=== PATIENT | male | born 1965 | race Caucasian/White ===

== ENCOUNTER 2017-01-18 14:12 | Emergency (ER) | payer MEDICARE ==
[~2017-01-18] VITALS: Ht 180.3 cm; Wt 76.0 kg
[~2017-01-18 14:12] MED LIST: ADVIL200 MG OR; ALLEGRA180 MG PO; AMITRIPTYLIN25 MG PO; AMOXICILLIN250 M1 PO; CARAFATE1 GM/10 M1 PO; COMBIVENT IN; COMBIVENT RESPIMAT IN; CYCLOBENZAPR10 MG PO; DRY E-NATUR400 UNIT PO; ELAVIL10 MG PO; FEOSOL65 MG PO; FERR SULFATE325 MG PO; FERROUS SULFAT325 MG PO; INFED50 MG/ML IJ; LORTAB 10 PO; LORTAB 1010 MG PO; NEXIUM20 M1 PO; NEXIUM40 M1 PO; OMEPRAZOLE20 MG PO; OXYCODONE HCL5 MG PO; PROAIR HFA IN; PROTONIX40 M2 PO; PROVENTIL IN; PROVENTIL INH17 GM IN; ROBAXIN-750750 MG PO; SPIRIVA HANDIHALER IN; VITAMIN D3400 UNI2 PO; XANAX0.5 MG PO; ZITHROMAX250 MG OR
[2017-01-18] MEDS ORDERED: PROAIR HFA IN (15:25)
[2017-01-18] MEDS ORDERED: VIAGRA100 MG PO (15:26)
[2017-01-18] MEDS ORDERED: PROTONIX40 M2 PO (15:26)
[2017-01-18 16:24] VITALS: BP 105/70
== END 2017-01-18 16:25 ==
LOC: ED 14:12
DX: K92.2 Gastrointestinal hemorrhage, unspecified (principal); D50.0 Iron deficiency anemia secondary to blood loss (chronic); F17.200 Nicotine dependence, unspecified, uncomplicated; R42 Dizziness and giddiness

== ENCOUNTER 2017-02-03 01:45 | Emergency (ER) | payer MEDICARE ==
[~2017-02-03] VITALS: Ht 180.3 cm; Wt 78.8 kg
[~2017-02-03 01:45] MED LIST changes: +VIAGRA100 MG PO
[2017-02-03] MEDS ORDERED: METOCLOPRAM5 MG PO (02:22)
[2017-02-03] MEDS ORDERED: LIDOCAINE VISC20 ML EX (02:36)
[2017-02-03] MEDS ORDERED: AMOXICILLIN500 MG PO (02:36)
[2017-02-03 03:15] VITALS: BP 129/90
== END 2017-02-03 03:15 | disposition home or self-care (01) ==
LOC: ED 01:45
DX: K04.7 Periapical abscess without sinus (principal); F17.210 Nicotine dependence, cigarettes, uncomplicated; G89.29 Other chronic pain; M54.9 Dorsalgia, unspecified

== ENCOUNTER 2017-07-23 16:51 | Emergency (ER) | payer MEDICARE ==
[~2017-07-23] VITALS: Ht 180.3 cm; Wt 60.0 kg
[~2017-07-23 16:51] MED LIST changes: +AMOXICILLIN500 MG PO; +LIDOCAINE VISC20 ML EX; +METOCLOPRAM5 MG PO
[2017-07-23 17:43] LABS: IMMATURE GRANULOCYTES 0.9 % (0.0-1.0); MEAN CELL VOLUME 60.5 fL CALC (80.0-100.0); MEAN CORPUSCULAR HGB 15.8 pG CALC (26.0-32.0); MEAN CORPUSCULAR HGB CONC 26.2 g/L CALC (32.0-36.0); NEUT# 14.01 thou/uL (1.82-7.42); RED BLOOD COUNT 3.92 mill/uL (4.70-6.10)
[2017-07-23 18:00] LABS: ALBUMIN 4.4 g/dL (3.2-5.0); ALKALINE PHOSPHATASE 51 u/l (38-126); AMYLASE < 30 u/l (30-110); BILIRUBIN, TOTAL 0.9 mg/dL (0.0-1.4); BUN 67 mg/dL (9-20); BUN/CREATININE RATIO 23 (12-20 (CALC)); CALCIUM 10.9 mg/dL (8.4-10.2); CHLORIDE 72 mmol/l (95-108); CREATININE 2.9 mg/dL (0.7-1.3); GFR 23 ML/MIN (>=60 (CALC)); GFR FOR AFR.AMER. 28 ML/MIN (>=60 (CALC)); GLUCOSE 118 mg/dL (75-110); LIPASE 39 u/l (23-300); POTASSIUM 2.8 mmol/l (3.5-5.1); SGOT/AST 19 u/l (17-59); SGPT/ALT 21 u/l (21-72); SODIUM 133 mmol/l (137-146); TOTAL PROTEIN 7.2 g/dL (6.3-8.2)
[2017-07-23 18:13] LABS: MYOGLOBIN 123 ng/mL (0 - 121)
[2017-07-23 18:20] LABS: ANION GAP 24 (6-22 (CALC)); CARBON DIOXIDE 40 mmol/l (22-30)
[2017-07-23 18:22] LABS: HEMATOCRIT 23.7 % (39.0-50.0); HEMOGLOBIN 6.2 g/dl (14.0-18.0)
[2017-07-23 20:51] LABS: URINE BILIRUBIN - DIPSTICK NEGATIVE (NEGATIVE); URINE BLOOD DIPSTICK TRACE-INTACT (NEGATIVE); URINE CLARITY CLEAR; URINE COLOR YELLOW; URINE GLUCOSE - DIPSTICK NEGATIVE (NEGATIVE); URINE KETONE NEGATIVE (NEGATIVE); URINE LEUK ESTERASE NEGATIVE (NEGATIVE); URINE NITRITE - DIPSTICK NEGATIVE (Negative); URINE PH 5.5 (4.5-8.0); URINE PROTEIN - DIPSTICK NEGATIVE (NEG-TRACE); URINE UROBILINOGEN - DIPSTICK 0.2 E.U./dL (0.2)
[2017-07-23 21:43] VITALS: BP 102/63
[2017-07-23 22:03] VITALS: BP 99/58
[2017-07-23 22:23] VITALS: BP 99/58
== END 2017-07-23 22:24 ==
LOC: ED 16:51
PROVIDERS: Emergency Medicine
PROC: 30233N1 Transfusion of Nonautologous Red Blood Cells into Peripheral Vein, Percutaneous Approach (ICD-10-PCS; principal; 2017-07-23)
DX: K92.2 Gastrointestinal hemorrhage, unspecified (principal); G89.29 Other chronic pain; M54.9 Dorsalgia, unspecified; F17.210 Nicotine dependence, cigarettes, uncomplicated; Z86.711 Personal history of pulmonary embolism; Z87.11 Personal history of peptic ulcer disease; R53.1 Weakness
CPT/HCPCS: P9016; S0164

== ENCOUNTER 2021-04-17 08:46 | Day surgery (SDC) | payer MEDICARE ==
[~2021-04-17] VITALS: Ht 182.9 cm; Wt 77.1 kg
[~2021-04-17 08:46] MED LIST changes: +STIOLTO RESPIMA1 AER IN; +XANAX1 MG PO
[2021-04-17] MEDS ORDERED: PERCOCET 5/325M1 TAB PO ×2 (11:14→11:15)
[2021-04-17 11:45] VITALS: BP 117/69
== END 2021-04-17 12:05 | disposition home or self-care (01) ==
LOC: ORM 08:46
PROVIDERS: ATTEND Surgery
PROC: 0YU64JZ Supplement Left Inguinal Region with Synthetic Substitute, Percutaneous Endoscopic Approach (ICD-10-PCS; principal; 2021-04-17)
DX: K40.91 Unilateral inguinal hernia, without obstruction or gangrene, recurrent (principal); F17.210 Nicotine dependence, cigarettes, uncomplicated
CPT/HCPCS: C1781; J0131; J2710

== ENCOUNTER 2022-10-12 08:10 | Day surgery (SDC) | payer MEDICARE ==
[~2022-10-12] VITALS: Ht 182.9 cm; Wt 70.8 kg
[~2022-10-12 08:10] MED LIST changes: +PERCOCET 5/325M1 TAB PO
[2022-10-12 12:13] VITALS: BP 104/67
== END 2022-10-12 11:30 | disposition home or self-care (01) ==
LOC: ENDO 08:10
PROVIDERS: ATTEND Internal Medicine Gastroenterology
PROC: 0DBH8ZX Excision of Cecum, Via Natural or Artificial Opening Endoscopic, Diagnostic (ICD-10-PCS; principal; 2022-10-12)
PROC: 0DBN8ZX Excision of Sigmoid Colon, Via Natural or Artificial Opening Endoscopic, Diagnostic (ICD-10-PCS; 2022-10-12)
PROC: 0DBP8ZX Excision of Rectum, Via Natural or Artificial Opening Endoscopic, Diagnostic (ICD-10-PCS; 2022-10-12)
DX: Z12.11 Encounter for screening for malignant neoplasm of colon (principal); D12.0 Benign neoplasm of cecum; D12.5 Benign neoplasm of sigmoid colon; K62.1 Rectal polyp; K40.90 Unilateral inguinal hernia, without obstruction or gangrene, not specified as recurrent; K57.30 Diverticulosis of large intestine without perforation or abscess without bleeding; K64.8 Other hemorrhoids

== ENCOUNTER 2022-12-22 08:34 | Day surgery (SDC) | payer MEDICARE ==
[~2022-12-22] VITALS: Ht 180.3 cm; Wt 70.0 kg
[~2022-12-22 08:34] MED LIST changes: +ANORO ELLIPTA 61 AER IN
[2022-12-22 15:14] VITALS: BP 110/71
== END 2022-12-22 14:58 | disposition home or self-care (01) ==
LOC: ORM 08:34
PROVIDERS: ATTEND Surgery
PROC: 0YQ50ZZ Repair Right Inguinal Region, Open Approach (ICD-10-PCS; principal; 2022-12-22)
PROC: 0WPG0JZ Removal of Synthetic Substitute from Peritoneal Cavity, Open Approach (ICD-10-PCS; 2022-12-22)
DX: K40.90 Unilateral inguinal hernia, without obstruction or gangrene, not specified as recurrent (principal); T85.628A Displacement of other specified internal prosthetic devices, implants and grafts, initial encounter; D17.6 Benign lipomatous neoplasm of spermatic cord; J44.9 Chronic obstructive pulmonary disease, unspecified; F17.210 Nicotine dependence, cigarettes, uncomplicated; Y83.2 Surgical operation with anastomosis, bypass or graft as the cause of abnormal reaction of the patient, or of later complication, without mention of misadventure at the time of the procedure
CPT/HCPCS: C9290; J0131; J0690

== ENCOUNTER 2023-05-04 11:49 | Emergency (ER) | payer MEDICARE ==
[~2023-05-04] VITALS: Ht 180.3 cm; Wt 68.0 kg
[2023-05-04 11:59] VITALS: BP 124/76
[2023-05-04 12:30] VITALS: BP 129/76
[2023-05-04 12:32] LABS: BASO% 0.1 % (0-3); HEMATOCRIT 50.9 % (39.0-50.0); HEMOGLOBIN 16.1 g/dl (14.0-18.0); IMMATURE GRANULOCYTES 0.2 % (0.0-5.0); LYMPH% 5.1 % (15-41); MEAN CELL VOLUME 94.4 fL CALC (80.0-100.0); MEAN CORPUSCULAR HGB 29.9 pG CALC (26.0-32.0); MEAN CORPUSCULAR HGB CONC 31.6 g/dL CAL (32.0-36.0); MONO% 5.4 % (2-13); NEUT# 13.82 thou/uL (1.82-7.42); NEUT% 89.2 % (42-76); RED BLOOD COUNT 5.39 mill/uL (4.70-6.10); RED CELL DISTRI WIDTH 13.4 % (11.5-15.5)
[2023-05-04 12:42] LABS: ALBUMIN 4.8 g/dL (3.2-5.0); ALKALINE PHOSPHATASE 61 u/l (38-126); BILIRUBIN, TOTAL 0.6 mg/dL (0.2-1.3); BUN 24 mg/dL (9-20); CARBON DIOXIDE 33 mmol/l (22-30); LIPASE 18 u/l (23-300); SGOT/AST 33 u/l (17-59); TOTAL PROTEIN 8.4 g/dL (6.3-8.2)
[2023-05-04 12:43] LABS: ANION GAP 15 (6-22 (CALC)); BUN/CREATININE RATIO 30 (12-20 (CALC)); CHLORIDE 98 mmol/l (95-108); CREATININE 0.8 mg/dL (0.7-1.3); GFR FOR AFR.AMER. > 60 ML/MIN (>=60 (CALC)); GFR OTHER RACES > 60 ML/MIN (>=60 (CALC)); SODIUM 142 mmol/l (137-146)
[2023-05-04 13:00] VITALS: BP 115/74
[2023-05-04 15:08] VITALS: BP 126/72
[2023-05-04 15:30] VITALS: BP 127/73
[2023-05-04 15:32] LABS: URINE BILIRUBIN - DIPSTICK NEGATIVE (NEGATIVE); URINE BLOOD DIPSTICK NEGATIVE (NEGATIVE); URINE COLOR YELLOW; URINE GLUCOSE - DIPSTICK NEGATIVE (NEGATIVE); URINE KETONE NEGATIVE (NEGATIVE); URINE LEUK ESTERASE NEGATIVE (NEGATIVE); URINE PROTEIN - DIPSTICK NEGATIVE (NEG-TRACE); URINE UROBILINOGEN - DIPSTICK 0.2 E.U./dL (0.2)
[2023-05-04 15:33] LABS: URINE NITRITE - DIPSTICK NEGATIVE (Negative)
[2023-05-04] MEDS ORDERED: PROTONIX40 M2 PO (15:44)
[2023-05-04] MEDS ORDERED: ONDANSETRON4 MG PO (15:44)
[2023-05-04 15:57] VITALS: BP 127/73
== END 2023-05-04 16:05 | disposition home or self-care (01) ==
LOC: ED 11:49
PROVIDERS: Family Medicine
DX: K52.9 Noninfective gastroenteritis and colitis, unspecified (principal); F17.200 Nicotine dependence, unspecified, uncomplicated
CPT/HCPCS: Q9967; S0164

== ENCOUNTER 2024-05-02 14:22 | Emergency (ER) | payer MEDICARE ==
[2024-05-02] VITALS (13 sets, daily range): BP systolic 119–143; BP diastolic 80–102
[~2024-05-02] VITALS: Ht 180.3 cm; Wt 79.0 kg
[~2024-05-02 14:22] MED LIST changes: +MEDDOSEPAK PO; +ONDANSETRON4 MG PO; +PREDNISONE20 MG PO; +TRAMADOL HCL E100 M1 PO
[2024-05-02] MEDS ORDERED: ASPIRIN 81 MG/TAB PO ONE (14:30)
[2024-05-02 14:54] LABS: BASO% 0.2 % (0-3); EOS% 1.4 % (0-8); HEMATOCRIT 44.4 % (39.0-50.0); IMMATURE GRANULOCYTES 0.2 % (0.0-5.0); LYMPH% 10.8 % (15-41); MEAN CELL VOLUME 94.1 fL CALC (80.0-100.0); MEAN CORPUSCULAR HGB 29.7 pG CALC (26.0-32.0); MEAN CORPUSCULAR HGB CONC 31.5 g/dL CAL (32.0-36.0); MONO% 6.8 % (2-13); NEUT# 9.52 thou/uL (1.82-7.42); NEUT% 80.6 % (42-76); RED BLOOD COUNT 4.72 mill/uL (4.70-6.10); RED CELL DISTRI WIDTH 14.8 % (11.5-15.5)
[2024-05-02 15:14] LABS: ALBUMIN 4.2 g/dL (3.2-5.0); ALKALINE PHOSPHATASE 78 u/l (38-126); ANION GAP 6 (6-22 (CALC)); BILIRUBIN, TOTAL 0.4 mg/dL (0.2-1.3); BUN 7 mg/dL (9-20); BUN/CREATININE RATIO 11 (12-20 (CALC)); CARBON DIOXIDE 28 mmol/l (22-30); CHLORIDE 105 mmol/l (95-108); CREATININE 0.7 mg/dL (0.7-1.3); ESTIMATED GFR 107 ML/MIN (>=90 (CALC)); MAGNESIUM 1.5 mg/dL (1.6-2.3); POTASSIUM 3.7 mmol/l (3.5-5.1); SGOT/AST 33 u/l (17-59); SODIUM 136 mmol/l (137-146); TOTAL PROTEIN 7.4 g/dL (6.3-8.2)
[2024-05-02] MEDS ORDERED: MAGNESIUM SULFATE HEPTAHYDRATE 100 ML IV ONE (15:45)
== END 2024-05-02 18:28 | disposition home or self-care (01) ==
LOC: ED 14:22
PROVIDERS: Family Medicine; Nurse Practitioner
DX: R53.1 Weakness (principal); E83.42 Hypomagnesemia; I45.2 Bifascicular block; J44.9 Chronic obstructive pulmonary disease, unspecified; G62.9 Polyneuropathy, unspecified; M54.9 Dorsalgia, unspecified; G89.29 Other chronic pain; F17.200 Nicotine dependence, unspecified, uncomplicated; Z86.711 Personal history of pulmonary embolism
CPT/HCPCS: J3475